=== PATIENT | female | born 1955 | race Caucasian/White ===

== ENCOUNTER 2023-08-11 09:04 | Outpatient (REF) | payer MEDICARE, SELFPAY ==
--- NOTE | ~2023-08-11 | XR_ITS ---
EXAMINATION: XR SHOULDER, RIGHT CLINICAL INFORMATION: Right shoulder. COMPARISON: None available. TECHNIQUE: Two views of the right shoulder. FINDINGS: Limited views of the shoulder show some mild degenerative change at the AC joint. Glenohumeral joint not optimally visualized but appears unremarkable. Extensive calcification is seen in the rotator cuff, likely the supraspinatus tendon. XR/XR shoulder RT min 2V IMPRESSION: Calcific tendinitis.
== END 2023-08-11 09:05 | disposition home or self-care (01) ==
LOC: HO.HOSX 09:04
PROVIDERS: Visit Provider Orthopaedic Surgery
DX: M25.511 Pain in right shoulder (principal)
CPT/HCPCS: 73030; 99202

== ENCOUNTER 2023-08-11 10:06 | Outpatient (AMB) | payer MEDICARE, SELFPAY ==
--- NOTE | 2023-08-11 10:11 | A.OFFVIS_ITS ---
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 The patient states that she injured her right shoulder several months ago while throwing logs over a fence. Since that time she has had difficulty lifting her right hand above shoulder height. She has failed the last 6 weeks of conservative treatment. She has had injections in the past which gave her no relief. She has also done physical therapy exercises which aggravated her pain. She has tried Tylenol and anti- inflammatory medicines which gave her minimal relief. Allergies azithromycin Allergy (Mild, Verified 08/11/23 10:14) rash Medication List - Last Reconciled 08/11/23 by Brent Bass MD latanoprost 0.005% drps ophthalmic (eye) timolol maleate 0.5% drps ophthalmic (eye) Physical Exam Const Other: Well-nourished well-developed very friendly female awake alert and oriented x3 in no acute distress Extrem Other: Bilateral upper extremity examination shows good capillary refill, no skin lesions noted, normal sensation light touch Right shoulder examination shows decreased active range of motion but full passive range of motion when compared to her left shoulder, 4/5 strength with supraspinatus testing, positive impingement signs, tenderness over her acromioclavicular joint, no instability Results Reviewed Results Reviewed: X-rays of the patient's right shoulder show severe acromioclavicular joint narrowing, a type 2 acromion, no acute bony abnormalities Assessment & Plan Assessment & Plan (1) Right shoulder pain: Code(s): M25.511 - Pain in right shoulder Category: Medical Plan Ms. Jackson presents with progressively worsening right shoulder pain and weakness most likely due to a full-thickness rotator cuff tear. Thus, I will send the patient for an MRI of her right shoulder for further evaluation. I will see her back once the MRI is completed to discuss the findings and treatment options. Feel free to call me at any time should questions regarding her orthopedic management arise. I spent 21 minutes in reviewing the patient's records and imaging studies, seeing the patient and documenting in the medical record. Orders: Orders XR shoulder RT min 2V 08/11/23 M25.511 - Pain in right shoulder MR shoulder RT wo con 08/11/23 M75.121 - Complete rotator cuff tear or rupture of right shoulder, not specified as traumatic Coding Level of Care Code New Pt Level 3 (34133) Diagnoses Right shoulder pain M25.511
== END 2023-08-11 10:36 | disposition home or self-care (01) ==
PROVIDERS: PCP Nurse Practitioner Family; Visit Provider Orthopaedic Surgery
DX: M25.511 Pain in right shoulder (principal)
CPT/HCPCS: 99203

== ENCOUNTER 2023-08-26 14:07 | Outpatient (AMB) | payer MEDICARE, SELFPAY ==
[2023-08-26 14:24] VITALS: BMI 27.5
--- NOTE | 2023-08-26 14:24 | MHC.OFFVIS ---
Vital Signs 08/26/23 14:24 Height 5 ft 5 in Weight 165 lb BMI 27.5 Intake Visit Reasons: O/V RT shoulder MRI Intake Note: Chantel is a 67 Year old right hand dominant female who presents with Right shoulder pain. The patient states that she injured her right shoulder several months ago while throwing logs over a fence. The patient states that she has been doing gentle stretching exercises. She states that her pain is intermittent and not constant. She reports mild weakness when lifting her right hand above shoulder height. She wishes to hold off on surgery if at all possible. Allergies azithromycin Allergy (Mild, Verified 08/26/23 14:24) rash Medication List - Last Reconciled 08/27/23 by Brent Bass MD latanoprost 0.005% drps ophthalmic (eye) timolol maleate 0.5% drps ophthalmic (eye) Physical Exam Vital Signs: BMI result Body Mass Index 27.5 Const Other: Well-nourished well-developed very friendly female awake alert and oriented x3 in no acute distress Extrem Other: Bilateral upper extremity examination shows good capillary refill, no skin lesions noted, normal sensation light touch Right shoulder examination shows full active range of motion when compared to her left shoulder, 4/5 strength with supraspinatus testing, positive impingement signs Results Reviewed Results Reviewed: MRI of the patient's right shoulder shows a type 2 acromion, severe acromioclavicular joint narrowing and a small full-thickness tear of the supraspinatus tendon Assessment & Plan Assessment & Plan (1) Right shoulder pain: Code(s): M25.511 - Pain in right shoulder Category: Medical Plan Ms. Jackson presents with right shoulder pain due to impingement syndrome, acromioclavicular joint arthritis and a small full-thickness rotator cuff tear. I had a lengthy discussion with the patient regarding the treatment options. At this point the patient's symptoms are tolerable to her. She wishes to continue with her activity modifications and [id number] exercises. She does understand that her tear can become larger in size and even irreparable over time. The do's and don'ts of lifting were discussed at length with the patient. She will contact me prior to her follow-up appointment in 3 months should her symptoms worsen in any way. Feel free to call me at any time should questions regarding her orthopedic management arise. I spent 22 minutes in reviewing the patient's records and imaging studies, seeing the patient and documenting in the medical record. Coding Level of Care Code Est Pt Level 3 (36010) Diagnoses Right shoulder pain M25.511
== END 2023-08-26 14:46 | disposition home or self-care (01) ==
PROVIDERS: PCP Nurse Practitioner Family; Visit Provider Orthopaedic Surgery
DX: M25.511 Pain in right shoulder (principal)
CPT/HCPCS: 99213

== ENCOUNTER → 2023-08-26 14:07 | Outpatient (BNVA) | payer MEDICARE, SELFPAY | PROVIDERS: PCP Nurse Practitioner Family; Visit Provider Orthopaedic Surgery | DX: M25.511 Pain in right shoulder (principal) | CPT/HCPCS: 99212 ==

== ENCOUNTER 2023-10-27 13:24 | Outpatient (REF) | payer MEDICARE, SELFPAY ==
--- NOTE | ~2023-10-27 | XR_ITS ---
EXAMINATION: XR KNEE, LEFT CLINICAL INFORMATION: Left knee pain. COMPARISON: None available. TECHNIQUE: Three views of the left knee. FINDINGS: Moderate medial compartment osteoarthritis with joint space narrowing, marginal osteophytes, chondrocalcinosis, and vacuum phenomenon. More mild osteoarthritis in the patellofemoral and lateral compartments. Enthesopathic spurring of the quadriceps tendon insertion on the patella. Slight varus angulation at the knee. Trace joint effusion. Bones are osteopenic. No acute fractures. XR/XR knee LT 3V IMPRESSION: 1. Moderate medial compartment osteoarthritis with more mild osteoarthritis in the patellofemoral and lateral compartments. 2. Trace joint effusion. Electronically signed by: Jacek Welsh MD 11/19/2023 10:53 PM EDT
== END 2023-10-27 13:25 | disposition home or self-care (01) ==
LOC: HO.HOSX 13:24
PROVIDERS: Visit Provider Orthopaedic Surgery
DX: M25.562 Pain in left knee (principal)
CPT/HCPCS: 20610; 73562; 99212; J1010

== ENCOUNTER 2023-10-27 13:30 | Outpatient (AMB) | payer MEDICARE, SELFPAY ==
--- NOTE | 2023-10-27 13:36 | MHC.OFFVIS ---
Vital Signs 10/27/23 13:50 Height 5 ft 5 in Weight 165 lb BMI 27.5 Intake Visit Reasons: Left knee pain Intake Note: Jorge A 67 year old female who presents today for an evaluation of left knee. The patient describes her pain as sharp in nature. Most of the pain is along the medial aspect of her knee. She has worn a knee brace which gives her mild relief. She has also taken Tylenol and ibuprofen which gave her minimal relief. The patient states that she had a cortisone injection given into her left knee several years ago which gave her good relief. She wishes to hold off on surgery for as long as possible. Allergies azithromycin Allergy (Mild, Verified 10/27/23 13:58) rash Medication List - Last Reconciled 10/28/23 by Brent Bass MD latanoprost 0.005% drps ophthalmic (eye) timolol maleate 0.5% drps ophthalmic (eye) PFS Social History (Updated 10/27/23 @ 13:50 by Dominique Snowden He) Patient Tobacco Use Status: Never used Tobacco Current occupational status: retired Physical Exam Vital Signs: BMI result Body Mass Index 27.5 Const Other: Well-nourished well-developed very friendly female awake alert and oriented x3 in no acute distress Extrem Other: Bilateral lower extremity examination shows good capillary refill, no skin lesions noted, normal sensation light touch Left knee examination shows a minimal effusion, palpable crepitus with range of motion, pain with range of motion, no instability Office Procedures Joint Injection/Aspiration Joint Injection/Aspiration Primary Site: left knee Prep: site was prepped using aseptic technique Injected: 40 mg of, DepoMedrol and 1% plain lidocaine Procedure: The patient tolerated the procedure well Coding 65119 - Large joint Procedure code (CPT) selection complete Results Reviewed Results Reviewed: X-rays of the patient's left knee show moderate joint space narrowing most significant in the medial compartment, subchondral sclerosis, no acute bony abnormalities Assessment & Plan Assessment & Plan (1) Left knee pain: Code(s): M25.562 - Pain in left knee Category: Medical Plan Ms. Jackson presents with progressively worsening left knee pain due to degenerative joint disease. I had a lengthy discussion with the patient regarding the treatment options. She wishes to hold off on surgery for as long as possible. I agree with this plan. The risks and benefits of a left knee cortisone injection were discussed at length with the patient. The patient wished to proceed with the injection. She tolerated the injection well. She will continue with her home exercise program. She will follow up with me on an as-needed basis should her symptoms not plateau at an unacceptable level over the next few months. Feel free to call me at any time should questions regarding her orthopedic management arise. I spent 21 minutes in reviewing the patient's records and imaging studies, seeing the patient and documenting in the medical record. Orders: Orders XR knee LT 3V 10/27/23 M25.562 - Pain in left knee AMB Joint Injection/Aspiration 10/27/23 M25.562 - Pain in left knee Coding Level of Care Code Est Pt Level 3 (25730) Diagnoses Left knee pain M25.562 CPT Codes Coding - 91545 Large joint: 16103 - Large joint ([id number])
[2023-10-27 13:50] VITALS: BMI 27.5
== END 2023-10-27 14:08 | disposition home or self-care (01) ==
PROVIDERS: PCP Nurse Practitioner Family; Visit Provider Orthopaedic Surgery
DX: M25.562 Pain in left knee (principal)
CPT/HCPCS: 20610; 99213

== ENCOUNTER 2023-11-24 09:26 | Outpatient (AMB) | payer MEDICARE, SELFPAY ==
[2023-11-24 09:28] VITALS: BMI 27.5
--- NOTE | 2023-11-24 09:28 | MHC.OFFVIS ---
Vital Signs 11/24/23 09:28 Height 5 ft 5 in Weight 165 lb BMI 27.5 Intake Visit Reasons: O/V RT shoulder 3 month f/u Intake Note: Chantel is a 68 year old female that presents with complaints of mild intermittent discomfort along the lateral aspect of her right shoulder. She denies any weakness in her shoulder. She continues with her home exercise program. She does not take any medicines for her discomfort. Allergies azithromycin Allergy (Mild, Verified 11/24/23 09:32) rash Medication List - Last Reconciled 11/24/23 by Brent Bass MD latanoprost 0.005% drps ophthalmic (eye) timolol maleate 0.5% drps ophthalmic (eye) [facility] Social History (Updated 10/27/23 @ 13:50 by Dominique Snowden He) Patient Tobacco Use Status: Never used Tobacco Current occupational status: retired Physical Exam Vital Signs: BMI result Body Mass Index 27.5 Const Other: Well-nourished well-developed very friendly female awake alert and oriented x3 in no acute distress Extrem Other: Bilateral upper extremity examination shows good capillary refill, no skin lesions noted, normal sensation light touch Right shoulder examination shows full range of motion when compared to her left shoulder, 4/5 strength with supraspinatus testing, positive impingement signs, no instability Assessment & Plan Assessment & Plan (1) Right shoulder pain: Code(s): M25.511 - Pain in right shoulder Category: Medical Plan Mrs. Jackson presents with intermittent right shoulder discomfort due to impingement syndrome and a small rotator cuff tear. I had a lengthy discussion with the patient regarding the treatment options. At this point the patient's symptoms are tolerable to her. She will continue with her home exercise program. The do's and don'ts of lifting were discussed at length with the patient. The patient will follow up with me on an as-needed basis should her symptoms worsen in any way. Feel free to call me at any time should questions regarding her orthopedic management arise. I spent 21 minutes in reviewing the patient's records and imaging studies, seeing the patient and documenting in the medical record. Coding Level of Care Code Est Pt Level 3 (46825) Complex EM visit Add On G2211 Diagnoses Right shoulder pain M25.511
== END 2023-11-24 09:52 | disposition home or self-care (01) ==
PROVIDERS: PCP Nurse Practitioner Family; Visit Provider Orthopaedic Surgery
DX: M25.511 Pain in right shoulder (principal)
CPT/HCPCS: 99213; G2211

== ENCOUNTER → 2023-11-24 09:26 | Outpatient (BNVA) | payer MEDICARE, SELFPAY | PROVIDERS: PCP Nurse Practitioner Family; Visit Provider Orthopaedic Surgery | DX: M25.511 Pain in right shoulder (principal) | CPT/HCPCS: 99212 ==